=== PATIENT | female | born 1985 ===

== ENCOUNTER 2017-03-13 14:54 | Outpatient (CLI) | payer BC ==
--- NOTE | 2017-03-14 10:23 | Ultrasound Report ---
TRANSABDOMINAL AND TRANSVAGINAL PELVIC ULTRASOUND: 03/13/17 14:54:00 CLINICAL: Enlarged uterus. FINDINGS: Transabdominal and transvaginal pelvic ultrasound demonstrated a mildly enlarged fibroid uterus measuring 10.1 x 6.0 x 9.3 cm.The largest fibroid is located subserosal posterior fundal and measures 5.4 x 4.3 x 5.0 cm. An anterior fundal subserosal fibroid measures 1.5 x 1.3 x 2.1 cm. An anterior intramural fibroid in the uterine body measures 3.8 x 2.5 x 2.6 cm. A mildly thickened proliferative endometrium measures 12.0 mm AP thickness. Normal ovaries with small follicles. The right ovary measures 4.3 x 1.7 x 3.5cm. The left ovary measures 2.4 x 2.0 x 3.5cm. No adnexal mass. No free fluid. Normal urinary bladder. IMPRESSION: 1. A mildly enlarged fibroid uterus with a dominant 5.4 cm posterior fundal fibroid. 2. Normal endometrium. 3. Normal ovaries.
== END 2017-03-13 14:55 | disposition home or self-care (01) ==
LOC: SPVWC 14:54
DX: D25.1 Intramural leiomyoma of uterus (principal)
CPT/HCPCS: 76830; 76856